=== PATIENT | male | born 1965 | race Two or more races ===

== ENCOUNTER 2016-12-02 16:27 | Emergency (ER) | payer MEDICAID ==
--- NOTE | 2016-12-02 17:18 | ER Document Report ---
ED Medical Screen (RME) - General Chief Complaint: Leg Pain Stated Complaint: LEG PAIN Time Seen by Provider: 12/02/16 17:15 Notes: This patient is complaining of pain, swelling, and drainage from his amputation stump of the right lower leg where he has had a BKA in April,. Patient has never had any problems or complications or infections of this stump, until now. Denies fever. Patient is able to easily compress the right lower leg causing purulent looking fluid to come out of the very tip of the stump at his amputation site. The adjacent tissue appears to have some swelling and slightly erythematous hue to the skin color. PMH: Hypertension, IDDM. TRAVEL OUTSIDE OF THE [place] IN LAST 30 DAYS: No - Related Data Allergies/Adverse Reactions: No Known Allergies Allergy (Verified 12/02/16 16:45) Past Medical History - Social History Frequency of alcohol use: None Drug Abuse: None - Past Medical History Cardiac Medical History: Reports: Hx Hypercholesterolemia, Hx Hypertension Endocrine Medical History: Reports: Hx Diabetes Mellitus Type 2 Renal/ Medical History: Denies: Hx Peritoneal Dialysis Skin Medical History: Denies Hx MRSA Past Surgical History: Reports: Hx Cholecystectomy, Hx Orthopedic Surgery - toe amputation middle from diabetes, right BKA - Immunizations Hx Diphtheria, Pertussis, Tetanus Vaccination: No Physical Exam - Vital signs Vitals: Temp Pulse Resp BP Pulse Ox 98.5 F 90 16 175/97 H 99 12/02/16 16:42 12/02/16 16:42 12/02/16 16:42 12/02/16 16:42 12/02/16 16:42 Course - Vital Signs Vital signs: Temp Pulse Resp BP Pulse Ox 98.5 F 90 16 175/97 H 99 12/02/16 16:42 12/02/16 16:42 12/02/16 16:42 12/02/16 16:42 12/02/16 16:42
[2016-12-02 17:49] LABS: ABSOLUTE BASOPHILS # (AUTO) 0.1 10^3/uL (0.0-0.2); ABSOLUTE EOSINOPHILS # (AUTO) 0.2 10^3/uL (0.0-0.6); ABSOLUTE LYMPHOCYTES (AUTO) 2.1 10^3/uL (0.5-4.7); ABSOLUTE MONOCYTES (AUTO) 1.2 10^3/uL (0.1-1.4); ABSOLUTE NEUT (AUTO) 6.4 10^3/uL (1.7-8.2); BASOPHILS % (AUTO) 0.6 % (0-2); EOSINOPHILS % (AUTO) 2.3 % (0-6); HEMATOCRIT 37.9 % (37.9-51.0); HEMOGLOBIN 12.7 g/dL (13.5-17.0); HGB HCT DIFFERENCE 0.2; LYMPHOCYTES % (AUTO) 21.3 % (13-45); MEAN CORPUSCULAR HEMOGLOBIN 31.2 pg (27.0-33.4); MEAN CORPUSCULAR HGB CONC 33.6 g/dL (32.0-36.0); MEAN CORPUSCULAR VOLUME 93 fl (80-97); MONOCYTES % (AUTO) 12.2 % (3-13); RED BLOOD COUNT 4.08 10^6/uL (4.35-5.55); RED CELL DISTRIBUTION WIDTH 13.2 % (11.5-14.0); SEGMENTED NEUTROPHILS % (AUTO) 63.6 % (42-78)
[2016-12-02 18:09] LABS: ALANINE AMINOTRANSFERASE 31 U/L (21-72); ALBUMIN 4.3 g/dL (3.5-5.0); ALKALINE PHOSPHATASE 102 U/L (38-126); ANION GAP 12 (5-19); ASPARTATE AMINO TRANSFERASE 28 U/L (17-59); BILIRUBIN,DIRECT 0.3 mg/dL (0.0-0.4); BILIRUBIN,TOTAL 0.3 mg/dL (0.2-1.3); BLOOD UREA NITROGEN 23 mg/dL (7-20); CALCIUM 9.3 mg/dL (8.4-10.2); CARBON DIOXIDE 22 mmol/L (22-30); CHLORIDE 104 mmol/L (98-107); CREATININE RESULT 0.91 mg/dL (0.52-1.25); GLUCOSE 116 mg/dL (75-110); POTASSIUM 4.7 mmol/L (3.6-5.0); SODIUM 138.2 mmol/L (137-145); TOTAL PROTEIN 7.9 g/dL (6.3-8.2)
[2016-12-02 18:38] LABS: APPEARANCE,URINE CLEAR; GLUCOSE, URINE NEGATIVE (NEGATIVE)
[2016-12-02 18:39] LABS: BILIRUBIN,URINE NEGATIVE (NEGATIVE); KETONES,URINE NEGATIVE (NEGATIVE); LEUKOCYTE ESTERASE,URINE NEGATIVE (NEGATIVE); NITRITE,URINE NEGATIVE (NEGATIVE); PROTEIN,URINE 30 mg/dL (NEGATIVE); URINE SPECIFIC GRAVITY 1.007; UROBILINOGEN,URINE NEGATIVE mg/dL (<2.0)
[2016-12-02 18:40] LABS: BACTERIA,URINE 3+ /HPF; WBC,URINE 0-1 /HPF
--- NOTE | 2016-12-02 19:12 | ER Document Report ---
ED General - General Chief Complaint: Leg Pain Stated Complaint: LEG PAIN Time Seen by Provider: 12/02/16 17:15 Mode of Arrival: Ambulatory Information source: Patient Notes: 51-year-old male history of right below-knee amputation one year prior presents with complaints of drainage from the leg. Patient denies any fevers or chills denies any streaking. Patient notes he was able to get clear yellowish liquid from the stump TRAVEL OUTSIDE OF THE [place] IN LAST 30 DAYS: No - HPI Onset: Last week Onset/Duration: Persistent Quality of pain: Achy Severity: Mild Pain Level: 1 Associated symptoms: Other Exacerbated by: Denies Relieved by: Denies Similar symptoms previously: Yes Recently seen / treated by doctor: Yes - Related Data Allergies/Adverse Reactions: No Known Allergies Allergy (Verified 12/02/16 16:45) Past Medical History - Social History Smoking Status: Current Every Day Smoker Cigarette use (# per day): Yes Chew tobacco use (# tins/day): No Smoking Education Provided: No Frequency of alcohol use: None Drug Abuse: None Family History: DM Patient has suicidal ideation: No Patient has homicidal ideation: No - Past Medical History Cardiac Medical History: Reports: Hx Hypercholesterolemia, Hx Hypertension Endocrine Medical History: Reports: Hx Diabetes Mellitus Type 2 Renal/ Medical History: Denies: Hx Peritoneal Dialysis Skin Medical History: Denies Hx MRSA Past Surgical History: Reports: Hx Cholecystectomy, Hx Orthopedic Surgery - 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 Denies recent illness. EENT: Denies eye, ear, throat, or mouth pain or symptoms. Denies nasal or sinus congestion or discharge. Denies throat, tongue, or mouth swelling or difficulty swallowing. CARDIOVASCULAR: Denies chest pain. Denies palpitations or racing or irregular heart beat. Denies ankle edema. RESPIRATORY: Denies cough, cold, or chest congestion. Denies shortness of breath, difficulty breathing, or wheezing. GASTROINTESTINAL: Denies abdominal pain or distention. Denies nausea, vomiting , or diarrhea. Denies blood in vomitus, stools, or per rectum. Denies black, tarry stools. Denies constipation. GENITOURINARY: Denies difficulty urinating, painful urination, burning, frequency, blood in urine, or discharge. MUSCULOSKELETAL: Denies back or neck pain or stiffness. Denies joint pain or swelling. SKIN: Admits to pain drainage from the lower extremity HEMATOLOGIC : Denies easy bruising or bleeding. LYMPHATIC: Denies swollen, enlarged glands. NEUROLOGICAL: Denies confusion or altered mental status. Denies passing out or loss of consciousness. Denies dizziness or lightheadedness. Denies headache. Denies weakness or paralysis or loss of use of either side. Denies problems with gait or speech. Denies sensory loss, numbness, or tingling. Denies seizures. PSYCHIATRIC: Denies anxiety or stress. Denies depression, suicidal ideation, or homicidal ideation. ALL OTHER SYSTEMS REVIEWED AND NEGATIVE. Dictation was performed using [employer] voice recognition software PHYSICAL EXAMINATION: GENERAL: Well-appearing, well-nourished and in no acute distress. HEAD: Atraumatic, normocephalic. EYES: Pupils equal round and reactive to light, extraocular movements intact, sclera anicteric, conjunctiva are normal. ENT: Nares patent, oropharynx clear without exudates. Moist mucous membranes. NECK: Normal range of motion, supple without lymphadenopathy LUNGS: Breath sounds clear to auscultation bilaterally and equal. No wheezes rales or rhonchi. HEART: Regular rate and rhythm without murmurs ABDOMEN: Soft, nontender, nondistended abdomen. No guarding, no rebound. No masses appreciated. Musculoskeletal: Drainage from the distal aspect of the right BKA clear yellowish NEUROLOGICAL: Cranial nerves grossly intact. Normal speech, normal gait. Normal sensory, motor exams PSYCH: Normal mood, normal affect. SKIN: Warm, Dry, normal turgor, no rashes or lesions noted. Physical Exam - Vital signs Vitals: Temp Pulse Resp BP Pulse Ox 98.5 F 90 16 175/97 H 99 12/02/16 16:42 12/02/16 16:42 12/02/16 16:42 12/02/16 16:42 12/02/16 16:42 Course - Re-evaluation Re-evalutation: 12/03/16 02:08 Patient has no significant signs of systemic infection, he will be started on antibiotics and has been given very strict return precautions, patient states he will return immediately if there are any other concerns After performing a Medical Screening Examination, I estimate there is LOW risk for OPEN FRACTURE, COMPARTMENT SYNDROME, TENDON RUPTURE, ACUTE NEUROVASCULAR INJURY, or RETAINED FOREIGN BODY, thus I consider the discharge disposition reasonable. Also, there is no evidence or peritonitis, sepsis, or toxicity. I have reevaluated this patient multiple times and no significant life threatening changes are noted. The patient and I have discussed the diagnosis and risks, and we agree with discharging home with close follow-up with the understanding that symptoms and presentations can change. We also discussed returning to the Emergency Department immediately if new or worsening symptoms occur. We have discussed the symptoms which are most concerning (e.g., changing or worsening pain, fever, numbness, weakness, cool or painful digits) that necessitate immediate return. - Vital Signs Vital signs: Temp Pulse Resp BP Pulse Ox 97.7 F 87 16 170/96 H 99 12/02/16 19:18 12/02/16 19:18 12/02/16 19:18 12/02/16 19:18 12/02/16 19:18 - Laboratory Result Diagrams: 12/02/16 17:33 12/02/16 17:33 Laboratory results interpreted by me: 12/02/16 12/02/16 12/02/16 17:33 17:33 17:33 RBC 4.08 L Hgb 12.7 L BUN 23 H Glucose 116 H Urine Protein 30 H Urine Blood LARGE H Discharge - Discharge Clinical Impression: PVD (peripheral vascular disease) Leg wound, right Qualifiers: Encounter type: initial encounter Qualified Code(s): S81.801A - Unspecified open wound, right lower leg, initial encounter Leg pain Qualifiers: Laterality: right Qualified Code(s): M79.604 - Pain in right leg Condition: Stable Disposition: HOME, SELF-CARE Instructions: Wound Infection ([facility]) Prescriptions: Cephalexin Monohydrate [Keflex 500 mg Capsule] 500 mg PO QID #40 capsule Hydrocodone/Acetaminophen [[place] 5-325 mg Tablet] 1 tab PO Q6 #14 tablet Sulfamethoxazole/Trimethoprim [Bactrim Ds Tablet] 2 each PO BID #40 tablet Referrals: MEGGAN ZAYAS DO [Primary Care Provider] - Follow up in 3-5 days
[2016-12-02 19:21] VITALS: BP 170/96
== END 2016-12-02 19:21 | disposition home or self-care (01) ==
LOC: ER 16:27
DX: E11.51 Type 2 diabetes mellitus with diabetic peripheral angiopathy without gangrene (principal); S81.801A Unspecified open wound, right lower leg, initial encounter; X58.XXXA Exposure to other specified factors, initial encounter; Z89.511 Acquired absence of right leg below knee; M79.604 Pain in right leg; F17.210 Nicotine dependence, cigarettes, uncomplicated; I10 Essential (primary) hypertension
CPT/HCPCS: 36415; 80053; 81001; 85025; 87070; 87075; 87077; 87186; 87205; 99283

== ENCOUNTER 2016-12-16 08:25 | Emergency (ER) | payer MEDICAID ==
[2016-12-16] MEDS ORDERED: CEPHALEXIN 500 MG CAPSULE PO ONE (09:41)
--- NOTE | 2016-12-16 10:57 | RADIOLOGY REPORT (SQ) ---
EXAM DESCRIPTION: KNEE RIGHT 3 VIEWS COMPLETED DATE/TIME: 12/16/2016 10:33 am REASON FOR STUDY: BKA eval bone spur COMPARISON: Right knee films 03/14/2016 NUMBER OF VIEWS: Two views. TECHNIQUE: AP and lateral radiographic images acquired of the right knee. LIMITATIONS: None. FINDINGS: MINERALIZATION: Osteopenic BONES: There is osteopenia along the distal femur and proximal tibia/ fibula. No aggressive bony dem ineralization or periosteal new bone worrisome for osteomyelitis. Patient has a right below the knee amputation. No bony spurring along the distal aspect of the fibula or tibia. JOINT: No effusion. SOFT TISSUES: There is a small soft tissue ulceration along the stump medially, best shown on AP view marked with a [place]. Atherosclerotic arterial vascular calcification. Surgical clips at the dista l stump soft tissues OTHER: No other significant finding. IMPRESSION: Small soft tissue ulcer over the distal stump medially. No bony spurring along the distal tibia or fibula. No periosteal new bone or aggressive bony resorpt ion worrisome for osteomyelitis. TECHNICAL DOCUMENTATION: JOB ID: [id number] [employer]- All Rights Reserved
[2016-12-16 11:19] LABS: ABSOLUTE EOSINOPHILS # (AUTO) 0.1 10^3/uL (0.0-0.6); ABSOLUTE LYMPHOCYTES (AUTO) 1.8 10^3/uL (0.5-4.7); ABSOLUTE MONOCYTES (AUTO) 0.7 10^3/uL (0.1-1.4); ABSOLUTE NEUT (AUTO) 5.7 10^3/uL (1.7-8.2); BASOPHILS % (AUTO) 0.3 % (0-2); EOSINOPHILS % (AUTO) 1.7 % (0-6); HEMATOCRIT 38.4 % (37.9-51.0); HEMOGLOBIN 12.5 g/dL (13.5-17.0); HGB HCT DIFFERENCE -0.9; LYMPHOCYTES % (AUTO) 21.6 % (13-45); MEAN CORPUSCULAR HEMOGLOBIN 30.5 pg (27.0-33.4); MEAN CORPUSCULAR HGB CONC 32.5 g/dL (32.0-36.0); MEAN CORPUSCULAR VOLUME 94 fl (80-97); MONOCYTES % (AUTO) 8.7 % (3-13); RED BLOOD COUNT 4.09 10^6/uL (4.35-5.55); SEGMENTED NEUTROPHILS % (AUTO) 67.7 % (42-78); WHITE BLOOD COUNT 8.4 10^3/uL (4.0-10.5)
[2016-12-16 11:41] LABS: ANION GAP 14 (5-19); BLOOD UREA NITROGEN 26 mg/dL (7-20); CALCIUM 9.6 mg/dL (8.4-10.2); CARBON DIOXIDE 20 mmol/L (22-30); CHLORIDE 107 mmol/L (98-107); CREATININE RESULT 1.08 mg/dL (0.52-1.25); GLUCOSE 209 mg/dL (75-110); POTASSIUM 5.6 mmol/L (3.6-5.0); SODIUM 140.5 mmol/L (137-145)
[2016-12-16] MEDS ORDERED: SODIUM POLYSTYRENE SULFONATE 15 GM/60 ML PO ONE (13:02)
--- NOTE | 2016-12-16 13:15 | ER Document Report ---
ED General - General Chief Complaint: Skin Problem Stated Complaint: RIGHT LEG WOUND Time Seen by Provider: 12/16/16 09:38 TRAVEL OUTSIDE OF THE [place] IN LAST 30 DAYS: No - HPI Patient complains to provider of: Right leg wound Notes: Patient coming in for evaluation of a wound on the right BKA patient states been developing recently had adjustments to his prosthesis. Patient is concerned that these had severe flexion on blisters and some before. Denies fevers chills nausea vomiting diarrhea. - Related Data Allergies/Adverse Reactions: No Known Allergies Allergy (Verified 12/16/16 08:49) Home Medications: Current Home Medications Glipizide 5 mg PO DAILY 12/16/16 [History] Insulin Aspart Protam & Aspart [Novolog Mix 70-30 Flexpen Syrn] 18 unit SUBCUT BID 12/16/16 [History] Insulin Regular, Human [Humulin R (Pyxis) Insulin 100 Unit/ml 3Ml] 0 unit SUBCUT .SLD SCALE 12/16/16 [History] Lisinopril [Zestril] 10 mg PO BID 12/16/16 [History] Metoprolol Succinate [Toprol XL 100 mg Tablet] 0.5 tab PO BID 12/16/16 [History] Simvastatin 20 mg PO DAILY 12/16/16 [History] Past Medical History - Social History Smoking Status: Never Smoker Chew tobacco use (# tins/day): No Frequency of alcohol use: None Drug Abuse: None Family History: DM Patient has suicidal ideation: No Patient has homicidal ideation: No - Past Medical History Cardiac Medical History: Reports: Hx Hypercholesterolemia, Hx Hypertension Endocrine Medical History: Reports: Hx Diabetes Mellitus Type 2 Renal/ Medical History: Denies: Hx Peritoneal Dialysis Skin Medical History: Denies Hx MRSA Past Surgical History: Reports: Hx Cholecystectomy, Hx Orthopedic Surgery - toe amputation middle from diabetes, right BKA - Immunizations Hx Diphtheria, Pertussis, Tetanus Vaccination: No Review of Systems - Review of Systems Constitutional: No symptoms reported EENT: No symptoms reported Cardiovascular: No symptoms reported Respiratory: No symptoms reported Gastrointestinal: No symptoms reported Genitourinary: No symptoms reported Male Genitourinary: No symptoms reported Musculoskeletal: Other - Wound to the right leg Skin: No symptoms reported Hematologic/Lymphatic: No symptoms reported Neurological/Psychological: No symptoms reported Physical Exam - Vital signs Vitals: Temp Pulse Resp BP Pulse Ox 97.9 F 90 16 156/83 H 99 12/16/16 08:29 12/16/16 08:29 12/16/16 08:29 12/16/16 08:29 12/16/16 08:29 Interpretation: Normal - General General appearance: Appears well, Alert - HEENT Head: Normocephalic, Atraumatic Eyes: Normal Pupils: PERRL - Respiratory Respiratory status: No respiratory distress Chest status: Nontender Breath sounds: Normal Chest palpation: Normal - Cardiovascular Rhythm: Regular Heart sounds: Normal auscultation Murmur: No - Abdominal Inspection: Normal Distension: No distension Bowel sounds: Normal Tenderness: Nontender Organomegaly: No organomegaly - Back Back: Normal, Nontender - Extremities General upper extremity: Normal inspection, Nontender, Normal color, Normal ROM , Normal temperature General lower extremity: Nontender, Normal color, Normal ROM, Normal temperature , Normal weight bearing. No: Normal inspection - Patient with a BKA to the right extremity with a small blister on the anterior aspect of the stump there is no surrounding erythema or cellulitis., Smiley's sign - Neurological Neuro grossly intact: Yes Cognition: Normal Orientation: AAOx4 Arthur Coma Scale Eye Opening: Spontaneous Arthur Coma Scale Verbal: Oriented Arthur Coma Scale Motor: Obeys Commands Arthur Coma Scale Total: 15 Speech: Normal Motor strength normal: LUE, RUE, LLE, RLE Sensory: Normal - Psychological Associated symptoms: Normal affect, Normal mood - Skin Skin Temperature: Warm Skin Moisture: Dry Skin Color: Normal Course - Re-evaluation Re-evalutation: 12/21/16 06:49 Patient with a blister due to the fact patient will have this in his prosthetic will cover for infection explained to the patient that he will need to follow- up with his hospitality specialist and orthopedic to adjust his prosthesis. Patient states understanding and will be discharged home. 12/21/16 06:50 Patient does have slight elevation in his potassium. Patient otherwise asymptomatic patient states that he normally has low potassium therefore has been eating and abundant amounts of foods with elevated potassium. We will give a single dose of Kayexalate patient was encouraged to adjust his diet follow-up with his primary care physician. - Vital Signs Vital signs: Temp Pulse Resp BP Pulse Ox 97.9 F 80 17 136/81 H 100 12/16/16 08:29 12/16/16 13:26 12/16/16 13:26 12/16/16 13:26 12/16/16 13:26 - Laboratory Result Diagrams: 12/16/16 11:06 12/16/16 11:06 Laboratory results interpreted by me: 12/16/16 12/16/16 11:06 11:06 RBC 4.09 L Hgb 12.5 L Potassium 5.6 H Carbon Dioxide 20 L BUN 26 H Glucose 209 H Discharge - Discharge Clinical Impression: Pressure ulcer of BKA stump, Hyperkalemia Condition: Good Disposition: HOME, SELF-CARE Instructions: Cellulitis ([facility]) Additional Instructions: Evaluation of your x-ray and lab work today did not reveal signs of overt infection. The ulcer forming at the end of your amputation will need to be evaluated by your physician. We will place you on antibiotics to prevent any infection. Lab work today showed slightly elevated potassium. We will treat this with Kayexalate I would recommend limiting your intake of leafy green vegetables Prescriptions: Cephalexin Monohydrate [Keflex 500 mg Capsule] 500 mg PO QID 10 Days Referrals: MEGGAN ZAYAS DO [Primary Care Provider] - Follow up in 3-5 days
[2016-12-16 13:28] VITALS: BP 136/81
== END 2016-12-16 13:26 | disposition home or self-care (01) ==
LOC: ER 08:25
DX: L89.899 Pressure ulcer of other site, unspecified stage (principal); E87.5 Hyperkalemia; R23.8 Other skin changes; Z79.899 Other long term (current) drug therapy
CPT/HCPCS: 99283; 36415; 87040; 87070; 87205; 85025; 87075; 87077; 80048; 87186; 73562; J3490

== ENCOUNTER 2017-07-05 09:39 | Emergency (ER) | payer MEDICAID ==
--- NOTE | 2017-07-05 11:08 | ER Document Report ---
ED Medical Screen (RME) - General Chief Complaint: Skin Problem Stated Complaint: SORES ON KNEE Time Seen by Provider: 07/05/17 11:06 Mode of Arrival: Wheelchair Information source: Patient Notes: Patient has a below the knee amputation to the right leg, complains of a blister that popped and is now an open sore to his right knee, denies any drainage or redness. Denies fevers or chills. TRAVEL OUTSIDE OF THE [place] IN LAST 30 DAYS: No - Related Data Allergies/Adverse Reactions: No Known Allergies Allergy (Verified 12/16/16 08:49) Past Medical History - General Information source: Patient - Past Medical History Cardiac Medical History: Reports: Hx Hypercholesterolemia, Hx Hypertension Endocrine Medical History: Reports: Hx Diabetes Mellitus Type 2 Renal/ Medical History: Denies: Hx Peritoneal Dialysis Skin Medical History: Denies Hx MRSA Past Surgical History: Reports: Hx Cholecystectomy, Hx Orthopedic Surgery - toe amputation middle from diabetes, right BKA - Immunizations Hx Diphtheria, Pertussis, Tetanus Vaccination: No Review of Systems - Review of Systems Skin: See HPI Physical Exam - Vital signs Vitals: Temp Pulse Resp BP Pulse Ox 98.8 F 86 22 H 128/63 H 98 07/05/17 09:54 07/05/17 09:54 07/05/17 09:54 07/05/17 09:54 07/05/17 09:54 - Notes Notes: skin: open sore, some yellow drainage no erythema to right knee over patella, nontender, no fluctance of induration Course - Vital Signs Vital signs: Temp Pulse Resp BP Pulse Ox 98.8 F 86 22 H 128/63 H 98 07/05/17 09:54 07/05/17 09:54 07/05/17 09:54 07/05/17 09:54 07/05/17 09:54
--- NOTE | 2017-07-05 11:49 | ER Document Report ---
ED Skin Rash/Insect Bite/Abscs - General Chief Complaint: Skin Problem Stated Complaint: SORES ON KNEE Time Seen by Provider: 07/05/17 11:06 Mode of Arrival: Wheelchair TRAVEL OUTSIDE OF THE [place] IN LAST 30 DAYS: No - Related Data Allergies/Adverse Reactions: No Known Allergies Allergy (Verified 12/16/16 08:49) Past Medical History - General Information source: Patient - Social History Family History: DM - Past Medical History Cardiac Medical History: Reports: Hx Hypercholesterolemia, Hx Hypertension Endocrine Medical History: Reports: Hx Diabetes Mellitus Type 2 Renal/ Medical History: Denies: Hx Peritoneal Dialysis Skin Medical History: Denies Hx MRSA Past Surgical History: Reports: Hx Cholecystectomy, Hx Orthopedic Surgery - toe amputation middle from diabetes, right BKA - Immunizations Hx Diphtheria, Pertussis, Tetanus Vaccination: No Physical Exam - Vital signs Vitals: Temp Pulse Resp BP Pulse Ox 98.8 F 86 22 H 128/63 H 98 07/05/17 09:54 07/05/17 09:54 07/05/17 09:54 07/05/17 09:54 07/05/17 09:54 Course - Vital Signs Vital signs: Temp Pulse Resp BP Pulse Ox 98.8 F 86 22 H 128/63 H 98 07/05/17 09:54 07/05/17 09:54 07/05/17 09:54 07/05/17 09:54 07/05/17 09:54 Discharge - Discharge Clinical Impression: Infected blister Condition: Stable Disposition: HOME, SELF-CARE Additional Instructions: Return immediately for any new or worsening symptoms. Follow up with primary care provider, call tomorrow to make followup appointment. Prescriptions: Sulfamethoxazole/Trimethoprim [Bactrim Ds Tablet] 1 each PO BID #20 tablet Referrals: MEGGAN ZAYAS DO [Primary Care Provider] - Follow up as needed
[2017-07-05] MEDS ORDERED: MUPIROCIN 2% OINTMENT 22 GM TP ONE (11:50)
[2017-07-05 12:35] VITALS: BP 103/68
== END 2017-07-05 12:35 | disposition home or self-care (01) ==
LOC: ER 09:39
DX: S80.22 Blister (nonthermal) of knee (principal); L98.9 Disorder of the skin and subcutaneous tissue, unspecified; X58.XXXA Exposure to other specified factors, initial encounter
CPT/HCPCS: 99283; J3490

== ENCOUNTER → 2017-09-01 | Outpatient (CLI) | payer MEDICAID | LOC: SP 14:05 | PROVIDERS: ATTEND Student in an Organized Health Care Education/Training Program | DX: I70.218 Atherosclerosis of native arteries of extremities with intermittent claudication, other extremity (principal) | CPT/HCPCS: 93922 ==

== ENCOUNTER → 2017-10-14 | Outpatient (CLI) | payer MEDICAID ==
--- NOTE | 2017-10-14 15:50 | XCELERA REPORT ---
[address] [address] Lower Extremity Arterial Evaluation Name: ELIE FRANCESYENNY Santiago Age: 51 yrs Gender: Male : 1965 Patient Status: Outpatient Patient Location: Study Date: 10/14/2017 09:35 AM Procedure: A color flow and duplex scan of the lower extremity arteries was performed on the left with velocity and waveform anaylsis. Reason For Study: PVD Ordering Physician: AMBROCIO ARANA Performed By: Shane Rosenthal Measurements and Calculations Right Left CHILDCARE WORKER PSV 123.6 cm/sec Prox PFA PSV -103.7 cm/sec Prox SFA PSV 96.5 cm/sec Mid SFA PSV -100.9 cm/sec Dist SFA PSV -157.1 cm/sec Prox Pop A PSV 82.1 cm/sec Dist INDIRA PSV 42.7 cm/sec Dist NIGHT SHIFT PSV 79.5 cm/sec Estuardo Pedis PSV 162.0 cm/sec Left Side Arterial Evaluation Normal velocity and triphasic waveforms noted from the Common Femoral to the Popliteal. Otherwise biphasic to the infrageniculate vessels and Deep Femoral. Stenoses noted on Colour/alexander scale in the distal Femoral and Dorsalis Pedis. 20-49 % stenosis at the infrageniculate vessels. Ankle Brachial index was declined. Interpretation Summary Moderate hemodynamically significant lesions in the left lower extremity only, on duplex imaging, at rest. : AMBROCIO ARANA > Ambrocio Arana
== END ==
LOC: SP 09:14
PROVIDERS: ATTEND Surgery
DX: I73.9 Peripheral vascular disease, unspecified (principal)
CPT/HCPCS: 93926

== ENCOUNTER 2018-03-31 08:39 | Emergency (ER) | payer MEDICAID ==
[2018-03-31 08:45] VITALS: BP 133/84
--- NOTE | 2018-03-31 09:17 | ER Document Report ---
HPI - HPI Patient complains to provider of: itching Onset: Other - 2 weeks Quality of pain: No pain, Other - itchy Severity: None Pain Level: Denies Context: Patient presents emergency department with complaints of itching all over for the past 2 weeks. Denies new medications. Denies new laundry detergent or new exposure to anything. Denies other symptoms such as fever vomiting diarrhea. No rash appreciated. No open wounds. Reports he itches all the time does not at night. Patient reports he has been taking Claritin without relief of symptoms. Associated Symptoms: None Exacerbated by: Denies Relieved by: Denies Similar symptoms previously: No Recently seen / treated by doctor: No - REPRODUCTIVE Reproductive: DENIES: : Past Medical History - General Information source: Patient - Social History Smoking Status: Unknown if Ever Smoked Cigarette use (# per day): No Frequency of alcohol use: None Drug Abuse: None Occupation: disabled Lives with: Alone Family History: DM Patient has suicidal ideation: No Patient has homicidal ideation: No - Past Medical History Cardiac Medical History: Reports: Hx Hypercholesterolemia, Hx Hypertension Endocrine Medical History: Reports: Hx Diabetes Mellitus Type 2 Renal/ Medical History: Denies: Hx Peritoneal Dialysis Skin Medical History: Denies Hx MRSA Past Surgical History: Reports: Hx Cholecystectomy, Hx Orthopedic Surgery - toe amputation middle from diabetes, right BKA - Immunizations Hx Diphtheria, Pertussis, Tetanus Vaccination: No Vertical Provider Document - CONSTITUTIONAL Agree With Documented VS: Yes Exam Limitations: No Limitations General Appearance: WD/WN, No Apparent Distress - nontoxic looking - INFECTION CONTROL TRAVEL OUTSIDE OF THE [place] IN LAST 30 DAYS: No - HEENT HEENT: Atraumatic, Normocephalic. negative: Conjuctival Injection - NECK Neck: Normal Inspection, Supple. negative: Lymphadenopathy-Left, Lymphadenopathy-Right - RESPIRATORY Respiratory: Breath Sounds Normal, No Respiratory Distress - CARDIOVASCULAR Cardiovascular: Regular Rate, Regular Rhythm - GI/ABDOMEN Gastrointestinal: Abdomen Soft, Abdomen Non-Tender - BACK Back: Normal Inspection - MUSCULOSKELETAL/EXTREMETIES Musculoskeletal/Extremeties: ARVIN TYSON - NEURO Level of Consciousness: Awake, Alert, Appropriate Motor/Sensory: No Motor Deficit - DERM Integumentary: Warm, Dry, No Rash - No rash noted anywhere- nothing noted between web of fingers. Course - Re-evaluation Re-evalutation: 03/31/18 09:15 contacted [facility] for appointment with Dr Zayas, appointment obtained for Apr 13 at 1513 03/31/18 09:25 Patient was instructed on appointment with Dr. Zayas. Was also instructed on ways to decrease itching. Again reviewed his skin no open wounds no rashes noted one small possible insect bite to the back of his neck noted. - Vital Signs Vital signs: Temp Pulse Resp BP Pulse Ox 97.9 F 77 16 133/84 H 100 03/31/18 08:44 03/31/18 08:44 03/31/18 08:44 03/31/18 08:44 03/31/18 08:44 Discharge - Discharge Clinical Impression: Pruritus Condition: Stable Disposition: HOME, SELF-CARE Instructions: Itching, Nonspecific ([facility]) Additional Instructions: *You have been evaluated for itching *Take benadryl as indicated *Avoid itching, place cool packs on areas that itch or take a cool shower * Cut your nails *Follow up with Dr Zayas on Apr.13 at 3:15pm *Return to ED for worsening condition, changes, needs Referrals: AMBROCIO ARANA MD [ACTIVE STAFF] - Follow up as needed MEGGAN ZAYAS DO [Primary Care Provider] - 04/13/18 3:15 pm (you have an appointment for Apr.13 at 3:15pm)
== END 2018-03-31 09:31 | disposition home or self-care (01) ==
LOC: ER 08:39
DX: L29.9 Pruritus, unspecified (principal); I10 Essential (primary) hypertension
CPT/HCPCS: 99282

== ENCOUNTER → 2018-08-29 | Outpatient (CLI) | payer MEDICAID ==
--- NOTE | 2018-08-29 12:32 | RADIOLOGY REPORT (SQ) ---
EXAM DESCRIPTION: VENOUS UNILATERAL LOWER COMPLETED DATE/TIME: 08/29/2018 10:58 am REASON FOR STUDY: LLE PAIN M79.662 PAIN IN LEFT LOWER LEG COMPARISON: 05/14/2015 TECHNIQUE: Dynamic and static haddad scale and color images acquired of the left leg venous system. Se lected spectral images acquired with additional compression and augmentation maneuvers. The contralat eral common femoral vein and saphenofemoral junction were also imaged. Images stored on PACS. LIMITATIONS: None. FINDINGS: COMMON FEMORAL: Normal phasicity, compression and augmentation. No visualized echogenic ma terial on haddad scale. No defects on color images. FEMORAL: Normal compression and augmentation. No visualized echogenic material on haddad scale. No defe cts on color images. POPLITEAL: Normal compression, augmentation. No visualized echogenic material on haddad scale. No defec ts on color images. CALF VESSELS: Normal compression, augmentation. No visualized echogenic material on haddad scale. No de fects on color images. GSV and SSV: Normal compression, augmentation. No visualized echogenic material on haddad scale. No def ects on color images. ANY DEEP VENOUS INSUFFICIENCY: Not evaluated. ANY EVIDENCE OF POPLITEAL CYST: No. OTHER: No other significant finding. CONTRALATERAL COMMON FEMORAL VEIN AND SAPHENOFEMORAL JUNCTION: Normal phasicity, compression and augmentation. No visualized echogenic material on haddad scale. No de fects on color images. IMPRESSION: NO EVIDENCE DVT OR SVT IN THE LEFT LEG. TECHNICAL DOCUMENTATION: JOB ID: [id number] [employer]- All Rights Reserved Reading location - IP/workstation name: [email or web address]
--- NOTE | 2018-09-01 12:27 | XCELERA REPORT ---
[address] [address] Lower Extremity Arterial Evaluation Name: CONG FRANCES Age: 52 yrs Gender: Male : 1965 Patient Status: Outpatient Patient Location: Study Date: 08/29/2018 10:08 AM Procedure: Ankle brachial indicies performed. A color flow and duplex scan of the lower extremity arteries was performed on the left with velocity and waveform anaylsis. Reason For Study: LLE PAIN Ordering Physician: JORGE KAHN Performed By: Vee Kong Measurements and Calculations Right Left STRAIGHTENER HAND PSV 109.7 cm/sec Prox PFA PSV -100.4cm/sec Prox SFA PSV 86.0 cm/sec Mid SFA PSV -105.3cm/sec Dist SFA PSV -126.3cm/sec Dist Pop A PSV 77.7 cm/sec Dist INDIRA PSV 91.8 cm/sec Prox SERGEANT AT ARMS PSV 77.7 cm/sec Dist SERGEANT AT ARMS PSV 102.7 cm/sec Dist Marie A 60.9 cm/sec PSV Estuardo Pedis PSV -146.7cm/sec Left Side Arterial Evaluation Normal velocity and triphasic waveforms noted in the Common Femoral artery to Popliteal. . Biphasic with normal velocity in the infrageniculate arteries. Ankle Brachial index not obtained due to non compressibility. Interpretation Summary Moderate hemodynamically significant lesions in the left lower extremity only, on duplex imaging, at rest. No focal stenosis identified, Pattern of disease suggests moderate compromise in the infrageniculate vessels. VON non compressibility supports the presence of arteriosclerosis. : JORGE KAHN > John Abdullahi
== END ==
LOC: SP 10:39
PROVIDERS: ATTEND Physician Assistant
DX: M79.662 Pain in left lower leg (principal); R60.9 Edema, unspecified
CPT/HCPCS: 93926; 93971

== ENCOUNTER 2018-09-25 20:09 | Emergency (ER) | payer MEDICAID ==
--- NOTE | 2018-09-25 21:17 | ER Document Report ---
ED Medical Screen (RME) - General Chief Complaint: Foot Pain Stated Complaint: BIG TOE PAIN Time Seen by Provider: 09/25/18 21:03 Primary Care Provider: JORGE KAHN PA-C [Primary Care Provider] - Follow up as needed Notes: Patient is a 52 year old patient left great toe pain. Patient reports history of diabetes, states he has neuropathy in that leg. Patient denies any history of gout. The toe is mildly erythematous. Denies any trauma. Exam: Mild erythema to left great toe. No swelling or deformity noted. I have greeted and performed a rapid initial assessment of this patient. A comprehensive ED assessment and evaluation of the patient, analysis of test results and completion of the medical decision making process will be conducted by additional ED providers. Dictation of this chart was performed using voice recognition software; therefore, there may be some unintended grammatical errors. TRAVEL OUTSIDE OF THE [place] IN LAST 30 DAYS: No - Related Data Allergies/Adverse Reactions: No Known Allergies Allergy (Verified 03/31/18 08:42) Past Medical History - Past Medical History Cardiac Medical History: Reports: Hx Hypercholesterolemia, Hx Hypertension Endocrine Medical History: Reports: Hx Diabetes Mellitus Type 2 Renal/ Medical History: Denies: Hx Peritoneal Dialysis Skin Medical History: Denies Hx MRSA Past Surgical History: Reports: Hx Cholecystectomy, Hx Orthopedic Surgery - toe amputation middle from diabetes, right BKA - Immunizations Hx Diphtheria, Pertussis, Tetanus Vaccination: No Physical Exam - Vital signs Vitals: Temp Pulse Resp BP Pulse Ox 98.3 F 88 14 213/93 H 99 09/25/18 20:38 09/25/18 20:38 09/25/18 20:38 09/25/18 20:38 09/25/18 20:38 Course - Vital Signs Vital signs: Temp Pulse Resp BP Pulse Ox 98.3 F 88 14 213/93 H 99 09/25/18 20:38 09/25/18 20:38 09/25/18 20:38 09/25/18 20:38 09/25/18 20:38 Doctor's Discharge - Discharge Referrals: JORGE KAHN PA-C [Primary Care Provider] - Follow up as needed
--- NOTE | 2018-09-25 22:03 | RADIOLOGY REPORT (SQ) ---
EXAM DESCRIPTION: XR TOES 2 OR MORE VIEWS COMPLETED DATE/TME: 09/25/2018 21:34 CLINICAL HISTORY: 52 years, Male, left great toe pain COMPARISON: None. NUMBER OF VIEWS: 3 TECHNIQUE: 3 views of the left great toe LIMITATIONS: None. FINDINGS: Osteopenia. Vascular calcifications. Negative for acute fracture or dislocation. Mild soft tissue swelling however no soft tissue gas. No cortical disruption or periosteal elevation. IMPRESSION: No radiographic evidence for acute osteomyelitis. copyright 2010 [employer] All Rights Reserved
[2018-09-25 22:26] LABS: ABSOLUTE EOSINOPHILS # (AUTO) 0.1 10^3/uL (0.0-0.6); ABSOLUTE LYMPHOCYTES (AUTO) 2.4 10^3/uL (0.5-4.7); ABSOLUTE MONOCYTES (AUTO) 1.2 10^3/uL (0.1-1.4); ABSOLUTE NEUT (AUTO) 7.4 10^3/uL (1.7-8.2); BASOPHILS % (AUTO) 0.4 % (0-2); EOSINOPHILS % (AUTO) 1.2 % (0-6); HEMATOCRIT 35.8 % (37.9-51.0); HEMOGLOBIN 12.4 g/dL (13.5-17.0); LYMPHOCYTES % (AUTO) 21.3 % (13-45); MEAN CORPUSCULAR HEMOGLOBIN 32.1 pg (27.0-33.4); MEAN CORPUSCULAR HGB CONC 34.8 g/dL (32.0-36.0); MEAN CORPUSCULAR VOLUME 92 fl (80-97); MONOCYTES % (AUTO) 10.4 % (3-13); PLATELET COUNT 308 10^3/uL (150-450); RED BLOOD COUNT 3.88 10^6/uL (4.35-5.55); RED CELL DISTRIBUTION WIDTH 13.7 % (11.5-14.0); SEGMENTED NEUTROPHILS % (AUTO) 66.7 % (42-78); TOTAL CELLS COUNTED % (AUTO) 100 %; WHITE BLOOD COUNT 11.1 10^3/uL (4.0-10.5)
[2018-09-25 22:42] LABS: ALANINE AMINOTRANSFERASE 42 U/L (21-72); ALBUMIN 4.6 g/dL (3.5-5.0); ALKALINE PHOSPHATASE 84 U/L (38-126); ANION GAP 11 (5-19); ASPARTATE AMINO TRANSFERASE 31 U/L (17-59); BILIRUBIN,DIRECT 0.3 mg/dL (0.0-0.4); BILIRUBIN,TOTAL 0.4 mg/dL (0.2-1.3); BLOOD UREA NITROGEN 24 mg/dL (7-20); CALCIUM 10.2 mg/dL (8.4-10.2); CARBON DIOXIDE 23 mmol/L (22-30); CHLORIDE 104 mmol/L (98-107); GLUCOSE 171 mg/dL (75-110); POTASSIUM 5.4 mmol/L (3.6-5.0); SODIUM 137.7 mmol/L (137-145); TOTAL PROTEIN 8.3 g/dL (6.3-8.2)
[2018-09-25] MEDS ORDERED: IBUPROFEN 600 MG TABLET PO ONE (23:39)
[2018-09-26] MEDS ORDERED: CEPHALEXIN 500 MG CAPSULE PO ONE (02:14)
--- NOTE | 2018-09-26 02:15 | ER Document Report ---
ED General - General Chief Complaint: Foot Pain Stated Complaint: BIG TOE PAIN Time Seen by Provider: 09/25/18 21:03 Primary Care Provider: JORGE KAHN PA-C [Primary Care Provider] - Follow up tomorrow Notes: , Diabetes, history of right BKA who presents with concerns of a left toe injury. Patient states that approximately 4 days ago he noticed that there was some swelling to his left great toe and what appeared to be fluid collection underneath the nail. He also notes that he has a throbbing, aching, constant pain to the toe worsened by touching it or walking. Nothing improves the pain. Has not seen his primary doctor regarding today's concerns. Notes that symptoms affect been unchanged since he first noticed them. Unsure of what happened to trigger the symptoms. No history of similar symptoms to this toe in the past but he relates that he lost his right foot secondary to a nail going into the foot resulting in severe infection and is concerned that the same thing could happen to this foot. Has not seen his primary doctor regarding today's concerns. TRAVEL OUTSIDE OF THE [place] IN LAST 30 DAYS: No - Related Data Allergies/Adverse Reactions: No Known Allergies Allergy (Verified 03/31/18 08:42) Past Medical History - General Information source: Patient - Social History Smoking Status: Current Every Day Smoker Frequency of alcohol use: Social Drug Abuse: None Lives with: Family Family History: DM Patient has suicidal ideation: No Patient has homicidal ideation: No - Past Medical History Cardiac Medical History: Reports: Hx Hypercholesterolemia, Hx Hypertension Endocrine Medical History: Reports: Hx Diabetes Mellitus Type 2 Renal/ Medical History: Denies: Hx Peritoneal Dialysis Skin Medical History: Denies Hx MRSA Past Surgical History: Reports: Hx Cholecystectomy, Hx Orthopedic Surgery - toe amputation middle from diabetes, right BKA - Immunizations Hx Diphtheria, Pertussis, Tetanus Vaccination: No Review of Systems - Review of Systems Notes: Constitutional: Negative for fever. HENT: Negative for sore throat. Eyes: Negative for visual changes. Cardiovascular: Negative for chest pain. Respiratory: Negative for shortness of breath. Gastrointestinal: Negative for abdominal pain, vomiting or diarrhea. Genitourinary: Negative for dysuria. Musculoskeletal: Positive for left toe pain Skin: Negative for rash. Neurological: Negative for headaches, weakness or numbness. 10 point ROS negative except as marked above and in HPI. Physical Exam - Vital signs Vitals: Temp Pulse Resp BP Pulse Ox 98.3 F 88 14 213/93 H 99 09/25/18 20:38 09/25/18 20:38 09/25/18 20:38 09/25/18 20:38 09/25/18 20:38 Interpretation: Hypertensive Notes: PHYSICAL EXAMINATION: GENERAL: Well-appearing, well-nourished and in no acute distress. HEAD: Atraumatic, normocephalic. EYES: Pupils equal round and reactive to light, extraocular movements intact, sclera anicteric, conjunctiva are normal. ENT: nares patent, oropharynx clear without exudates. Moist mucous membranes. NECK: Normal range of motion, supple without lymphadenopathy LUNGS: Breath sounds clear to auscultation bilaterally and equal. No wheezes rales or rhonchi. HEART: Regular rate and rhythm without murmurs, 2+ DP pulse on the left, capillary refill less than 1 second in all digits of the left foot ABDOMEN: Soft, nontender, normoactive bowel sounds. No guarding, no rebound. No masses appreciated. EXTREMITIES: There is a subungual hematoma on the left great toe with mild laxity of the nail. There is no apparent swelling, warmth or deformity of the toe. NEUROLOGICAL: No focal neurological deficits. Moves all extremities spontaneously and on command. PSYCH: Normal mood, normal affect. SKIN: Warm, Dry, normal turgor, no rashes or lesions noted. Course - Re-evaluation Re-evalutation: 09/26/18 02:12 Patient presents with concerns of an injury to his left great toe. There appears to be a subungual hematoma although I do not see any evidence of circumferential swelling of the toe, no evidence of a diabetic ulcer pressure sore, no evidence of cellulitis. Patient is extremely concerned as this is how he initially lost his right foot although at that time it was secondary to a bertt nail being poked into his second toe that eventually resulted in complete amputation of the foot. It is difficult to determine whether or not there would be any associated component of a small paronychia but I think the risk of opening the area is greater than avoiding that at this time given patient's diabetic status and currently there being no real sufficient evidence of infection. Patient and I have agreed to cover him with antibiotics at this time prophylactically and he will follow-up with his primary care doctor within the next several days. At this time will discharge with return precautions and follow-up recommendations. Verbal discharge instructions given a the bedside and opportunity for questions given. Medication warnings reviewed. Patient is in agreement with this plan and has verbalized understanding of return precautions and the need for primary care follow-up in the next 24-72 hours. - Vital Signs Vital signs: Temp Pulse Resp BP Pulse Ox 97.6 F 89 20 158/96 H 98 09/26/18 02:47 09/26/18 02:47 09/26/18 02:47 09/26/18 02:47 09/26/18 02:47 - Laboratory Result Diagrams: 09/25/18 21:53 09/25/18 21:53 Laboratory results interpreted by me: 09/25/18 09/25/18 21:53 21:53 WBC 11.1 H RBC 3.88 L Hgb 12.4 L Hct 35.8 L Potassium 5.4 H BUN 24 H Creatinine 1.78 H Est GFR ( Amer) 49 L Est GFR (Non-Af Amer) 40 L Glucose 171 H Uric Acid 10.0 H Total Protein 8.3 H - Diagnostic Test Radiology reviewed: Image reviewed, Reports reviewed Radiology results interpreted by me: 09/26/18 02:13 Left toe x-ray: No acute fracture Discharge - Discharge Clinical Impression: Injury of left great toe Qualifiers: Encounter type: initial encounter Qualified Code(s): S99.922A - Unspecified injury of left foot, initial encounter Diabetic neuropathy Qualifiers: Diabetes mellitus type: type 2 Diabetes mellitus complication detail: diabetic polyneuropathy Qualified Code(s): E11.42 - Type 2 diabetes mellitus with diabetic polyneuropathy Condition: Good Disposition: HOME, SELF-CARE Additional Instructions: Please take the antibiotics as prescribed. Please follow-up with your primary care doctor within the next 48 hours. Return if you develop spreading redness, increased swelling of the toe, fever or any other symptoms that are worrisome to you. There is not appear to be an active infection at this time. The antibiotics are to hopefully prevent an infection associated with the fluid collection under your nail bed. Prescriptions: Cephalexin Monohydrate [Keflex 500 mg Capsule] 500 mg PO Q6H 7 Days capsule Referrals: JORGE KAHN PA-C [Primary Care Provider] - Follow up tomorrow
[2018-09-26 02:50] VITALS: BP 158/96
== END 2018-09-26 02:50 | disposition home or self-care (01) ==
LOC: ER 20:09
DX: S99.922A Unspecified injury of left foot, initial encounter (principal); E11.42 Type 2 diabetes mellitus with diabetic polyneuropathy; M79.675 Pain in left toe(s); M79.89 Other specified soft tissue disorders; X58.XXXA Exposure to other specified factors, initial encounter; F17.200 Nicotine dependence, unspecified, uncomplicated; I10 Essential (primary) hypertension
CPT/HCPCS: 99283; 36415; 84550; 85025; 80053; 73660; J3490

== ENCOUNTER → 2018-10-03 | Outpatient (CLI) | payer MEDICAID ==
--- NOTE | 2018-10-04 08:06 | XCELERA REPORT ---
[address] [address] Lower Extremity Arterial Evaluation Name: CONG FRANCES Age: 52 yrs Gender: Male : 1965 Patient Status: Outpatient Patient Location: [facility] Study Date: 10/03/2018 01:25 PM Procedure: A color flow and duplex scan of the lower extremity arteries was performed on the left with velocity and waveform anaylsis. Reason For Study: LT BLUE TOE Ordering Physician: MEGGAN ZAYAS Performed By: Kristopher Mcbride Measurements and Calculations Right Left GRAPHICS MANAGER PSV 101.8 cm/sec Prox PFA PSV -102.1cm/sec Prox SFA PSV 86.9 cm/sec Mid SFA PSV -91.8 cm/sec Dist SFA PSV -100.2cm/sec Prox Pop A PSV 98.7 cm/sec Dist INDIRA PSV 70.9 cm/sec Prox LABORATORY ASSOCIATE PSV 62.5 cm/sec Dist LABORATORY ASSOCIATE PSV 97.2 cm/sec Estuardo Pedis PSV -150.3cm/sec Left Side Arterial Evaluation Normal velocity and triphasic waveforms noted from the Common Femoral artery to the Popliteal artery. Biphasic with normal velocity in the infrageniculate vessels . Ankle Brachial index, attempted, not obtainable due to non compressibility. Interpretation Summary Moderate hemodynamically significant lesions in the left lower extremity only, on duplex imaging, at rest. VON's non compressible, indicating vessel wall arteriosclerosis. : MEGGAN ZAYAS > John Abdullahi
== END ==
LOC: SP 12:32
PROVIDERS: ATTEND Student in an Organized Health Care Education/Training Program
DX: I73.9 Peripheral vascular disease, unspecified (principal)
CPT/HCPCS: 93926

== ENCOUNTER 2019-01-12 21:52 | Emergency (ER) | payer MEDICAID ==
[2019-01-13] MEDS ORDERED: HYDROCODONE/ACETAMINOPHEN 5-325 MG TABLET PO ONE (01:42)
--- NOTE | 2019-01-13 02:19 | ER Document Report ---
ED General - General Chief Complaint: Nose Pain Stated Complaint: NOSE INJURY Time Seen by Provider: 01/13/19 01:31 Primary Care Provider: ISAAK MAST PA-C [Primary Care Provider] - Follow up in 3-5 days Notes: Patient is a 53-year-old male with diabetes that presents to the emergency department for chief complaint of nose pain, rib pain and hip pain after injuries. Patient states he was in at home, when a tree had fallen on the trailer home, causing the kitchen cabinets to fall down, which unfortunately hit him in the nose, and he was "tossed" across the room, landed on his right side, he does not believe that he lost consciousness, but thinks he may have blacked out for a brief second, because it all happened so fast. He currently complains of pain on his right side, and across his nasal bones, and currently rates his pain as a 6 out of 10 describes it as a constant aching sensation, worse with putting any pressure across the nose. He did have some bleeding in his nose which has since stopped. Denies any other complaints at this time. Denies any headache, lightheadedness, nausea, vomiting or blurred vision. Denies any numbness, tingling or weakness. Past Medical History: Diabetes, hypertension Past Surgical History: Right below the knee amputation Social History: Admits to smoking cigarettes, denies alcohol or drug use. Family History: Reviewed and noncontributory for presenting illness Allergies: Reviewed, see documented allergy list. REVIEW OF SYSTEMS: Other than noted above, the 12 point review of systems was reviewed with the patient and were negative, all pertinent findings are included in the HPI. PHYSICAL EXAMINATION: Vital signs reviewed, nursing noted reviewed. GENERAL: Patient appears uncomfortable, but in no acute distress. HEAD: There is a linear superficial abrasion across the nasal bridge, no scalp deformities noted otherwise. No scalp lacerations or scalp hematomas. EYES: Eyes appear normal, extraocular movements intact, sclera anicteric, conjunctiva are normal. ENT: Small amount of dried blood noted in the left nares, no active bleeding. Tenderness with palpation across the nasal bridge, oropharynx clear without exudates. Moist mucous membranes. NECK: Normal range of motion, supple without lymphadenopathy, no midline tenderness. LUNGS: Breath sounds clear to auscultation bilaterally and equal. No wheezes rales or rhonchi. There is rib tenderness noted on the right, without flail chest, step-offs or deformities noted. HEART: Regular rate and rhythm without murmurs ABDOMEN: Soft, nontender, normoactive bowel sounds. No rebound, guarding, or rigidity. No masses appreciated. EXTREMITIES: Right hip tenderness to palpation, no pelvic instability on exam. Right below the knee amputation noted, nontender, good range of motion, no pitting or edema. NEUROLOGICAL: No focal neurological deficits. Moves all extremities spontaneously Motor and sensory grossly intact on exam. PSYCH: Normal mood, normal affect. SKIN: Warm, Dry, normal turgor, no rashes or lesions noted on exposed skin TRAVEL OUTSIDE OF THE [place] IN LAST 30 DAYS: No - Related Data Allergies/Adverse Reactions: No Known Allergies Allergy (Verified 01/09/19 11:56) Past Medical History - Social History Smoking Status: Current Every Day Smoker Chew tobacco use (# tins/day): No Frequency of alcohol use: Rare Drug Abuse: None Family History: DM Patient has suicidal ideation: No Patient has homicidal ideation: No - Past Medical History Cardiac Medical History: Reports: Hx Hypercholesterolemia, Hx Hypertension Endocrine Medical History: Reports: Hx Diabetes Mellitus Type 2 Renal/ Medical History: Denies: Hx Peritoneal Dialysis Skin Medical History: Denies Hx MRSA Past Surgical History: Reports: Hx Cholecystectomy, Hx Orthopedic Surgery - toe amputation middle from diabetes, right BKA - Immunizations Hx Diphtheria, Pertussis, Tetanus Vaccination: No Physical Exam - Vital signs Vitals: Temp Pulse Resp BP Pulse Ox 98.2 F 113 H 18 141/85 H 98 01/12/19 22:13 01/12/19 22:13 01/12/19 22:13 01/12/19 22:13 01/12/19 22:13 Course - Re-evaluation Re-evalutation: Patient seen and examined vital signs reviewed. Patient was evaluated and treated as appropriate for the patient's presenting symptoms and complaint, with consideration of any critical or life threatening conditions that may be associated with their obtained history and exam as noted above. Patient was treated with [place] for pain The patient was re-evaluated and was stable and improved, x-rays of the hip and ribs on the right side were negative for fracture or bony injury, CT imaging of the facial bones demonstrated nasal bone fracture, age-indeterminate, but likely acute given injury patterns, otherwise no other bony injuries or fractures. Evaluation was most consistent with nasal bone fracture, right rib and hip contusions. Patient be discharged to home. Plan of care was discussed with the patient at this point, after careful consideration I feel that that patient can be discharged from the emergency department, the patient was educated treatments and reasons to return to the emergency department based on their presumed diagnosis as noted above, they were advised to followup with a primary care physician in 2-3 days. Patient was agreeable to plan of care. *Note is created using voice recognition software and may contain spelling, syntax or grammatical errors. Ribs w/Chest X-Ray 01/13/19 01:42 IMPRESSION: No acute finding. copyright 2010 [employer]- All Rights Reserved Facial Bones CT 01/13/19 01:43 IMPRESSION: Age-indeterminate right nasal bone fracture. Given the lack of soft tissue swelling, this might be chronic, however correlate for point tenderness. Hip/Pelvis X-Ray 01/13/19 01:43 IMPRESSION: No acute fracture or dislocation copyright 2010 [employer]- All Rights Reserved - Vital Signs Vital signs: Temp Pulse Resp BP Pulse Ox 97.5 F 100 16 154/85 H 100 01/13/19 03:04 01/13/19 03:04 01/13/19 03:04 01/13/19 03:04 01/13/19 03:04 Discharge - Discharge Clinical Impression: Nasal fracture Qualifiers: Encounter type: initial encounter Fracture type: closed Qualified Code(s): S02.2XXA - Fracture of nasal bones, initial encounter for closed fracture Rib contusion Qualifiers: Encounter type: initial encounter Laterality: right Qualified Code(s): S20.211A - Contusion of right front wall of thorax, initial encounter Contusion, hip Qualifiers: Encounter type: initial encounter Laterality: right Qualified Code(s): S70.01XA - Contusion of right hip, initial encounter Condition: Stable Disposition: HOME, SELF-CARE Instructions: Fracture of the Nose ([facility]), Rib Contusion ([facility]) Additional Instructions: Please follow-up with your primary care, and take the dispense medication, only if needed every 8 hours for pain, if you have any worsening symptoms, or things are not improving over the next several days, do not hesitate to return to the emergency department. Referrals: ISAAK MAST PA-C [Primary Care Provider] - Follow up in 3-5 days
--- NOTE | 2019-01-13 02:36 | RADIOLOGY REPORT (SQ) ---
CT MAXILLOFACIAL WITHOUT IV CONTRAST EXAM DATE: 01/13/2019 1:43 AM CDT HISTORY: Nasal injury. COMPARISON: None. TECHNIQUE: CT scan of the facial bones was performed without IV contrast. This exam was performed according to our departmental dose-optimization program, which includes automated exposure control, adjustment of the mA and/or kV according to patient size and/or use of iterative reconstruction technique. FINDINGS: There is an age-indeterminate mildly displaced fracture of the right nasal bone. No air-fluid levels are seen in the paranasal sinuses. The mastoid air cells are clear. No retrobulbar mass or hematoma is identified. IMPRESSION: Age-indeterminate right nasal bone fracture. Given the lack of soft tissue swelling, this might be chronic, however correlate for point tenderness.
--- NOTE | 2019-01-13 02:49 | RADIOLOGY REPORT (SQ) ---
EXAM DESCRIPTION: XR HIP 2 OR MORE VIEWS COMPLETED DATE/TME: 01/13/2019 01:43 CLINICAL HISTORY: 53 years, Male, right hip pain, injury COMPARISON: None. NUMBER OF VIEWS: Two TECHNIQUE: Two views of the right hip LIMITATIONS: None. FINDINGS: There is no acute fracture or dislocation. The hip and sacroiliac joints appear intact. Vascular calcifications are noted. No large soft tissue swelling. No radiopaque foreign body. IMPRESSION: No acute fracture or dislocation copyright 2010 [employer]- All Rights Reserved
--- NOTE | 2019-01-13 02:51 | RADIOLOGY REPORT (SQ) ---
EXAM DESCRIPTION: XR RIBS UNILATERAL WITH CHEST COMPLETED DATE/TME: 01/13/2019 01:42 CLINICAL HISTORY: 53 years, Male, right rib pain, injury COMPARISON: None. NUMBER OF VIEWS: TECHNIQUE: LIMITATIONS: None. FINDINGS: There is no evidence of rib fracture. No evidence of pulmonary infiltrate or pleural effusion. The heart and mediastinum are unremarkable. Pulmonary vascularity appears normal. IMPRESSION: No acute finding. copyright 2010 [employer]- All Rights Reserved
[2019-01-13] MEDS ORDERED: HYDROCODONE/ACETAMINOPHEN 5-325 MG (6 TAB/ER DISP) PO PRN (02:56)
[2019-01-13 03:10] VITALS: BP 154/85
== END 2019-01-13 03:09 | disposition home or self-care (01) ==
LOC: ER 21:52
DX: S02.2XXA Fracture of nasal bones, initial encounter for closed fracture (principal); S20.211A Contusion of right front wall of thorax, initial encounter; S70.01XA Contusion of right hip, initial encounter; J34.89 Other specified disorders of nose and nasal sinuses; R07.81 Pleurodynia; M25.551 Pain in right hip; R55 Syncope and collapse; W20.8XXA Other cause of strike by thrown, projected or falling object, initial encounter; E11.9 Type 2 diabetes mellitus without complications; I10 Essential (primary) hypertension; F17.210 Nicotine dependence, cigarettes, uncomplicated
CPT/HCPCS: 70486; 99284

== ENCOUNTER 2019-08-23 08:52 | Emergency (ER) | payer MEDICAID ==
--- NOTE | 2019-08-23 10:08 | ER Document Report ---
ED General - General Chief Complaint: Abscess Stated Complaint: POSSIBLE ABSCESS/LEG PAIN Primary Care Provider: ISAAK MAST PA-C [Primary Care Provider] - Follow up as needed Mode of Arrival: Ambulatory Information source: Patient Notes: Patient is a 53-year-old male presenting to the emergency department chief complaint of left-sided facial abscess. Patient states it is been there for approximately 7 days and getting worse. Patient states he has tried warm compresses without success. Patient does report being diabetic. Patient denies any other complaints at this time TRAVEL OUTSIDE OF THE [place] IN LAST 30 DAYS: No - HPI Onset: Last week Onset/Duration: Gradual, Worse Quality of pain: Fullness, Pressure Severity: Moderate Pain Level: 2 Associated symptoms: None Exacerbated by: Denies Relieved by: Denies Similar symptoms previously: No Recently seen / treated by doctor: No - Related Data Allergies/Adverse Reactions: No Known Allergies Allergy (Verified 01/09/19 11:56) Past Medical History - General Information source: Patient - Social History Smoking Status: Current Every Day Smoker Cigarette use (# per day): Yes Smoking Education Provided: Yes Frequency of alcohol use: Occasional Drug Abuse: None Family History: DM Patient has suicidal ideation: No Patient has homicidal ideation: No - Past Medical History Cardiac Medical History: Reports: Hx Hypercholesterolemia, Hx Hypertension Endocrine Medical History: Reports: Hx Diabetes Mellitus Type 2 Renal/ Medical History: Denies: Hx Peritoneal Dialysis Skin Medical History: Denies Hx MRSA Past Surgical History: Reports: Hx Cholecystectomy, Hx Orthopedic Surgery - 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 Denies recent illness. EENT: Denies eye, ear, throat, or mouth pain or symptoms. Denies nasal or sinus congestion. CARDIOVASCULAR: Denies chest pain. RESPIRATORY: Denies cough, cold, or chest congestion. Denies shortness of breath, difficulty breathing, or wheezing. GASTROINTESTINAL: Denies abdominal pain. Denies nausea, vomiting, or diarrhea. Denies constipation. GENITOURINARY: Denies difficulty urinating, painful urination, burning, fr equency, or blood in urine. MUSCULOSKELETAL: Denies neck or back pain or joint pain or swelling. SKIN: Per HPI HEMATOLOGIC : Denies easy bruising or bleeding. NEUROLOGICAL: Denies altered mental status or loss of consciousness. Denies headache. Denies weakness or paralysis or loss of use of either side. Denies problems with gait or speech. Denies sensory or motor loss. PSYCHIATRIC: Denies suicidal or homicidal ideations 10 Systems are negative unless otherwise specified above Physical Exam - Vital signs Vitals: Temp Pulse Resp BP Pulse Ox 98.8 F 97 18 148/79 H 98 08/23/19 08:59 08/23/19 08:59 08/23/19 08:59 08/23/19 08:59 08/23/19 08:59 - Notes Notes: PHYSICAL EXAMINATION: GENERAL: Well-appearing, well-nourished and in no acute distress. HEAD: Atraumatic, normocephalic. Patient does have a 2 and half centimeter abscess to the left zygomatic region. EYES: Pupils equal round and reactive to light, extraocular movements intact, sclera anicteric, conjunctiva are normal. ENT: nares patent, oropharynx clear without exudates. Moist mucous membranes. NECK: Normal range of motion, supple without lymphadenopathy, no appreciable JVD LUNGS: Lungs clear to auscultation bilaterally and equal. No wheezes rales or rhonchi. HEART: Regular rate and rhythm without murmurs ABDOMEN: Soft, nontender, normal bowel sounds. No guarding, no rebound. No masses appreciated. EXTREMITIES: Active full range of motion, no pitting or edema. No cyanosis. 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 NEUROLOGICAL: No focal neurological deficits. Moves all extremities spontaneously and on command. SKIN: Warm, Dry, and intact. Normal turgor, no rashes or lesions noted. Except as stated above Course - Re-evaluation Re-evalutation: 08/23/19 11:05 Patient tolerated the incision and drainage with minimal difficulty secondary to the pain. Patient will be discharged home in stable condition placed on Keflex and Bactrim recommended to follow-up with general surgery in the next several days or his primary care provider if not improving. - Vital Signs Vital signs: Temp Pulse Resp BP Pulse Ox 98.8 F 97 18 148/79 H 98 08/23/19 08:59 08/23/19 08:59 08/23/19 08:59 08/23/19 08:59 08/23/19 08:59 Procedures - Incision and Drainage Left Face Time completed: 11:05 Type: Complex Anesthetic type: 1% Lidocaine mL's of anesthetic: 2 Blade size: 11 I&D procedure: Betadine prep applied Incision Method: Incision made by scalpel Amount/type of drainage: moderate mucopurulent Discharge - Discharge Clinical Impression: Facial abscess Condition: Stable Disposition: HOME, SELF-CARE Instructions: Abscess ([facility]), Post Incision and Drainage, Trimethoprim-Sulfa ([facility]), Cephalexin ([facility]) Prescriptions: Sulfamethoxazole/Trimethoprim [Bactrim Ds Tablet] 1 each PO BID #20 tablet Cephalexin Monohydrate [Keflex 500 mg Capsule] 500 mg PO Q6H 5 Days #40 capsule Referrals: ISAAK MAST PA-C [Primary Care Provider] - Follow up as needed DEDRICK DRISCOLL MD [ACTIVE STAFF] - Follow up as needed
[2019-08-23] MEDS ORDERED: LIDOCAINE 1% INJ-PF (10 MG/ML) 30 ML SDV INJ ONE (10:38)
[2019-08-23 11:14] VITALS: BP 172/93
== END 2019-08-23 11:15 | disposition home or self-care (01) ==
LOC: ER 08:52
DX: L02.01 Cutaneous abscess of face (principal); S80.821A Blister (nonthermal), right lower leg, initial encounter; X58.XXXA Exposure to other specified factors, initial encounter; E11.9 Type 2 diabetes mellitus without complications; F17.210 Nicotine dependence, cigarettes, uncomplicated; I10 Essential (primary) hypertension; Z89.511 Acquired absence of right leg below knee
CPT/HCPCS: 99282; 10060; J3490

== ENCOUNTER 2020-01-21 14:34 | Emergency (ER) | payer MEDICAID ==
[2020-01-21 14:39] VITALS: BP 132/79
--- NOTE | 2020-01-21 16:52 | ER Document Report ---
ED Medical Screen (RME) - General Chief Complaint: Leg Pain Stated Complaint: RIGHT LEG PAIN Time Seen by Provider: 01/21/20 16:45 Primary Care Provider: ISAAK MAST PA-C [Primary Care Provider] - Follow up as needed Mode of Arrival: Ambulatory Information source: Patient Notes: 54-year-old male presented to ED for complaint of excruciating pain to his right stump. He states he has had pain for about a year but is been much worse since Tuesday. He states it is so bad he cannot sleep. He is a diabetic. He is alert oriented respirations regular nonlabored speaking in full sentences. He states he did have a trace fall on it about a year ago he had x-rays at that time but he states he has never had this amount of pain in his stump. We will get blood urine and x-ray of the stump and have him seen by another provider. I have greeted and performed a rapid initial assessment of this patient. A comprehensive ED assessment and evaluation of the patient, analysis of test results and completion of medical decision making process will be conducted by an additional ED providers. TRAVEL OUTSIDE OF THE [place] IN LAST 30 DAYS: No - Related Data Allergies/Adverse Reactions: No Known Allergies Allergy (Verified 01/09/19 11:56) Home Medications: januvia, atorvastatin, lantus, glipizide, lisinopril, metorpolol , potassium, Past Medical History - Social History Frequency of alcohol use: Social Drug Abuse: None - Past Medical History Cardiac Medical History: Reports: Hx Hypercholesterolemia, Hx Hypertension Endocrine Medical History: Reports: Hx Diabetes Mellitus Type 2 Renal/ Medical History: Denies: Hx Peritoneal Dialysis Skin Medical History: Denies Hx MRSA Past Surgical History: Reports: Hx Cholecystectomy, Hx Orthopedic Surgery - 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
[2020-01-21] MEDS ORDERED: HYDROCODONE/ACETAMINOPHEN 5-325 MG TABLET PO ONE (16:53)
[2020-01-21 17:19] LABS: ABSOLUTE BASOPHILS # (AUTO) 0.1 10^3/uL (0.0-0.2); ABSOLUTE EOSINOPHILS # (AUTO) 0.2 10^3/uL (0.0-0.6); ABSOLUTE LYMPHOCYTES (AUTO) 1.7 10^3/uL (0.5-4.7); ABSOLUTE MONOCYTES (AUTO) 0.8 10^3/uL (0.1-1.4); ABSOLUTE NEUT (AUTO) 5.3 10^3/uL (1.7-8.2); BASOPHILS % (AUTO) 0.7 % (0-2); EOSINOPHILS % (AUTO) 2.4 % (0-6); HEMATOCRIT 39.8 % (37.9-51.0); HEMOGLOBIN 13.8 g/dL (13.5-17.0); LYMPHOCYTES % (AUTO) 21.5 % (13-45); MEAN CORPUSCULAR HEMOGLOBIN 31.9 pg (27.0-33.4); MEAN CORPUSCULAR HGB CONC 34.6 g/dL (32.0-36.0); MEAN CORPUSCULAR VOLUME 92 fl (80-97); MONOCYTES % (AUTO) 10.2 % (3-13); PLATELET COUNT 279 10^3/uL (150-450); RED BLOOD COUNT 4.32 10^6/uL (4.35-5.55); RED CELL DISTRIBUTION WIDTH 13.4 % (11.5-14.0); SEGMENTED NEUTROPHILS % (AUTO) 65.2 % (42-78); TOTAL CELLS COUNTED % (AUTO) 100 %; WHITE BLOOD COUNT 8.1 10^3/uL (4.0-10.5)
--- NOTE | 2020-01-21 17:29 | RADIOLOGY REPORT (SQ) ---
EXAM DESCRIPTION: KNEE RIGHT 4 VIEWS IMAGES COMPLETED DATE/TIME: 01/21/2020 5:14 pm REASON FOR STUDY: Severe pain right stump below the knee COMPARISON: 12/16/2016 NUMBER OF VIEWS: Four views. TECHNIQUE: AP, lateral, and both oblique radiographic images acquired of the right knee. LIMITATIONS: None. FINDINGS: MINERALIZATION: Normal. BONES: Below the knee amputation. There is no significant interval change in the appearance of the b ones since these earlier study 2017. JOINT: No effusion. SOFT TISSUES: No soft tissue swelling. No radio-opaque foreign body. OTHER: No other significant finding. IMPRESSION: [id number] amputation. No acute finding in the bone. TECHNICAL DOCUMENTATION: JOB ID: [id number] 2010 [employer]- All Rights Reserved Reading location - IP/workstation name: [email or web address]
[2020-01-21 17:32] LABS: APPEARANCE,URINE CLEAR; BILIRUBIN,URINE NEGATIVE (NEGATIVE); COLOR,URINE STRAW; GLUCOSE, URINE >=500 mg/dL (NEGATIVE); KETONES,URINE NEGATIVE (NEGATIVE); LEUKOCYTE ESTERASE,URINE NEGATIVE (NEGATIVE); NITRITE,URINE NEGATIVE (NEGATIVE); PROTEIN,URINE 30 mg/dL (NEGATIVE); URINE SPECIFIC GRAVITY 1.022; UROBILINOGEN,URINE NEGATIVE mg/dL (<2.0)
[2020-01-21 17:54] LABS: ALBUMIN 4.4 g/dL (3.5-5.0); ALKALINE PHOSPHATASE 116 U/L (38-126); ANION GAP 6 (5-19); ASPARTATE AMINO TRANSFERASE 50 U/L (17-59); BILIRUBIN,TOTAL 0.3 mg/dL (0.2-1.3); BLOOD UREA NITROGEN 26 mg/dL (7-20); CALCIUM 10.4 mg/dL (8.4-10.2); CARBON DIOXIDE 26 mmol/L (22-30); CHLORIDE 102 mmol/L (98-107); GLUCOSE 275 mg/dL (75-110); TOTAL PROTEIN 8.1 g/dL (6.3-8.2)
== END 2020-01-22 08:20 | disposition left against medical advice (07) ==
LOC: ER 14:34
DX: M79.661 Pain in right lower leg (principal); Z89.511 Acquired absence of right leg below knee; E11.9 Type 2 diabetes mellitus without complications; E78.00 Pure hypercholesterolemia, unspecified; Z79.4 Long term (current) use of insulin; Z79.899 Other long term (current) drug therapy; Z53.20 Procedure and treatment not carried out because of patient's decision for unspecified reasons
CPT/HCPCS: 36415; 80053; 81001; 85025; 99281

== ENCOUNTER 2020-02-16 19:41 | Emergency (ER) | payer MEDICAID ==
[2020-02-16 19:50] VITALS: BP 138/87
[2020-02-16] MEDS ORDERED: PREDNISONE 20 MG TABLET PO ONE (19:54)
[2020-02-16] MEDS ORDERED: DIPHENHYDRAMINE HCL 50 MG CAPSULE PO ONE (19:54)
[2020-02-16] MEDS ORDERED: HYDROCORTISONE 1% CREAM 28.35 GM TOP ONE (19:55)
[2020-02-16] MEDS ORDERED: FAMOTIDINE 20 MG TABLET PO ONE (19:55)
--- NOTE | 2020-02-16 20:00 | ER Document Report ---
HPI - HPI Time Seen by Provider: 02/16/20 19:51 Pain Level: 2 Notes: 54-year-old male patient presenting to the emergency department concern for painful rash to his arms and legs. Patient reports he was in the guillory. He states he has been scratching at them and is now bleeding from this. He denies this happening previously. Patient is a very anxious. He is constantly scratching his arms. - ROS Systems Reviewed and Negative: Yes All other systems reviewed and negative - REPRODUCTIVE Reproductive: DENIES: : - DERM Notes: inset bites Past Medical History - General Information source: Patient - Social History Smoking Status: Current Every Day Smoker Frequency of alcohol use: Social Family History: DM Patient has homicidal ideation: No - Past Medical History Cardiac Medical History: Reports: Hx Hypercholesterolemia, Hx Hypertension Endocrine Medical History: Reports: Hx Diabetes Mellitus Type 2 Renal/ Medical History: Denies: Hx Peritoneal Dialysis Skin Medical History: Denies Hx MRSA Past Surgical History: Reports: Hx Cholecystectomy, Hx Orthopedic Surgery - 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 HEAD: Atraumatic, normocephalic. EYES: Pupils equal round extraocular movements intact, conjunctiva are normal. ENT: Nares patent NECK: Normal range of motion LUNGS: No respiratory distress Musculoskeletal: Normal range of motion NEUROLOGICAL: Normal speech, normal gait. PSYCH: Normal mood, normal affect. SKIN: Small bumps noted to patient's bilateral upper and lower extremities, there are also scratch marcus present. - INFECTION CONTROL TRAVEL OUTSIDE OF THE [place] IN LAST 30 DAYS: No Course - Re-evaluation Re-evalutation: Examination and presentation consistent with chigger bites. Due to patient's excessive scratching he will be started on medications for his symptoms. Patient verbalizes understanding and agreement of this plan. - Vital Signs Vital signs: Temp Pulse Resp BP Pulse Ox 97.7 F 115 H 16 138/87 H 97 02/16/20 19:46 02/16/20 19:46 02/16/20 19:46 02/16/20 19:46 02/16/20 19:46 Discharge - Discharge Clinical Impression: Chigger bites Condition: Stable Disposition: HOME, SELF-CARE Additional Instructions: Insect Bites You have been bitten by an insect. These bites can cause two types of swelling: an initial swelling due to insect saliva or injected poison, and a late reaction due to your body's allergic reaction. This initial local reaction may be uncomfortable but is not dangerous. Often there's an itchy "hive" at the bite location. This is treated with antihistamines, cold compresses, and resting the affected body part. The later reaction often develops about the second day. The entire area becomes very swollen, red, itchy, and tender. This is an allergic reaction. Your body is attacking the leftover insect saliva or venom. This type of allergy is unpleasant, but not dangerous. We treat this swelling with cortisone-type medicine. Sometimes we use antibiotics if we're worried about infection. Antihistamines help with the itch. If you develop a fever, chills, a red streak, or swollen glands in the area of the bite, infection may be starting. Return at once. Prescriptions: Prednisone [Deltasone 20 mg Tablet] 3 tab PO DAILY 4 Days #12 tablet Cephalexin [Keflex] 500 mg PO BID #14 capsule Famotidine [Pepcid 20 mg Tablet] 20 mg PO BID #10 tablet Referrals: ISAAK MAST PA-C [Primary Care Provider] - Follow up as needed
[2020-02-16] MEDS ORDERED: HYDROCORTISONE 1% CREAM 28.35 GM ONE (21:05)
== END 2020-02-16 20:06 | disposition home or self-care (01) ==
LOC: ER 19:41
DX: R21 Rash and other nonspecific skin eruption (principal); F41.9 Anxiety disorder, unspecified; W57.XXXA Bitten or stung by nonvenomous insect and other nonvenomous arthropods, initial encounter; F17.200 Nicotine dependence, unspecified, uncomplicated; I10 Essential (primary) hypertension; E11.9 Type 2 diabetes mellitus without complications
CPT/HCPCS: 99283; J3490 ×3; J7512